=== PATIENT | female | born 1970 | race Caucasian/White ===

== ENCOUNTER 2020-02-15 10:15 | Outpatient (CLI) | payer BC ==
--- NOTE | 2020-02-15 11:05 | MMO ---
Right Breast MAMMO Unilat Diag DDI RT+LIA. CLINICAL HISTORY: Patient is 49 years old and is seen for diagnostic exam,lump or thickening in the upper-outer region of the right breast and pain in the upper-outer region of the right breast. The patient has the following family history of breast cancer: mother, at age 62, malignant (generic). The patient has a history of Skin cancer. VIEWS: The views performed were: right craniocaudal with tomosynthesis; right mediolateral oblique with tomosynthesis; and right mediolateral with tomosynthesis. FILMS COMPARED: The present examination has been compared to prior imaging studies performed at [facility] on 07/20/2019, and at [place] [facility] on 02/15/2020. This study has been interpreted with the assistance of computer-aided detection. MAMMOGRAM FINDINGS: The breast is heterogeneously dense, which could obscure a lesion on mammography. There are benign appearing calcifications seen in the right breast. There are no suspicious masses, suspicious calcifications, or new areas of architectural distortion. IMPRESSION: THERE IS NO MAMMOGRAPHIC EVIDENCE OF MALIGNANCY. A ROUTINE FOLLOW-UP MAMMOGRAM IN 1 YEAR IS RECOMMENDED. THE RESULTS OF THIS EXAM WERE SENT TO THE PATIENT. ACR BI-RADS Category 2 - Benign finding MAMMOGRAPHY NOTE: 1. A negative mammogram report should not delay a biopsy if a dominant of clinically suspicious mass is present. 2. Approximately 10% to 15% of breast cancers are not detected by mammography. 3. Adenosis and dense breasts may obscure an underlying neoplasm. Reported by: HOLLI MATHEW MD Electonically Signed: [id number]
--- NOTE | 2020-02-15 15:07 | ULT ---
ULTRASOUND RIGHT BREAST: INDICATION: Ultrasound of the outer upper right breast was performed to assess a palpable abnormality noted by th e patient. There were no mammographic abnormalities. FINDINGS: No sonographic abnormality identified. IMPRESSION: Ultrasound findings of BIRADS 1, negative. POS: OFF
== END 2020-02-15 10:16 | disposition home or self-care (01) ==
LOC: BICMAMMO 10:15
PROVIDERS: ATTEND Family Medicine
DX: N63.0 Unspecified lump in unspecified breast (principal)
CPT/HCPCS: G0279

== ENCOUNTER 2021-08-21 08:08 | Outpatient (CLI) | payer BC | END 2021-08-21 08:09 | disposition home or self-care (01) | LOC: BICMAMMO 08:08 | PROVIDERS: ATTEND Family Medicine | DX: Z12.31 Encounter for screening mammogram for malignant neoplasm of breast (principal); M85.80 Other specified disorders of bone density and structure, unspecified site; M81.0 Age-related osteoporosis without current pathological fracture; Z80.3 Family history of malignant neoplasm of breast; Z85.828 Personal history of other malignant neoplasm of skin | CPT/HCPCS: 77063; 77067; 77080 ==